=== PATIENT | female | born 1965 | race Hispanic/Latino ===

== ENCOUNTER → 2017-12-29 | Day surgery (SDC) | payer OTHER, MEDICARE ==
--- NOTE | 2017-12-29 11:24 | Operative Report ---
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 She was found to have an abnormality on noncontrast CT scan but unclear what since no IV contrast. A renal US showed the abnormality to be possibly consistent with TCC. Her cystoscopy in the office was WNL. She was given the risks, benefits and alternatives of the surgery required and all questions answered. She wished to proceed. This was reviewed in the office and holding area. Patient was taken to the operating room and placed in a supine position on the OR table. Time out was performed and IV antibiotics were infused. LMA anesthesia was initiated and she was placed in the dorsal lithotomy position. A cystoscopy was performed and it was WNL again. The left ureteral orifice was cannulated using Sensor guidewire followed by Superstiff. The Superstiff was used to place an ureteral access sheath. The flexible ureteroscope was placed into the renal pelvis. The tumor was seen and pictures were taken with the ureteroscope. Biopsies were taken though it was very difficult to grab any tissue. The samples were sent in formalin. Stent 6x22cm was left in place. Patient tolerated the procedure well. She was taken to the recovery room in stable condition. Findings: left renal pelvis tumor did not appear to be in any of th calyces Discharge Disposition: PACU
--- NOTE | 2017-12-29 16:25 | RADIOLOGY REPORT ---
EXAMINATION: Intraoperative fluoroscopy CLINICAL INFORMATION: Left ureteroscopically with biopsy and stent placement COMPARISON: None. TECHNIQUE: Intraoperative fluoroscopy was provided for use by Dr. Helms. A total of 19 images were saved to PACS. TOTAL FLUOROSCOPIC TIME: 22 seconds FINDINGS\E\IMPRESSION: Intraoperative fluoroscopy provided for use by Dr. Helms. Please see operative note for detailed findings.
== END ==
LOC: STS 07:00
DX: D41.4 Neoplasm of uncertain behavior of bladder (principal); R31.0 Gross hematuria; G47.33 Obstructive sleep apnea (adult) (pediatric)
CPT/HCPCS: 74018; C2617; J0690; J2250